=== PATIENT | male | born 1995 | race Caucasian/White ===

== ENCOUNTER 2022-12-11 18:28 | Emergency (ER) | payer OTHER ==
[~2022-12-11] VITALS: Ht 162.6 cm; Wt 60.0 kg
[2022-12-11] MEDS ORDERED: METHOCARBAMOL500 MG PO (19:34)
[2022-12-11] MEDS ORDERED: EC-NAPROXEN500 MG PO (19:34)
[2022-12-11 20:02] VITALS: BP 114/81
== END 2022-12-11 20:08 | disposition home or self-care (01) | DRG 552 ==
LOC: ED 18:28
DX: M54.2 Cervicalgia (principal); M54.50 Low back pain, unspecified; V49.50XA Passenger injured in collision with unspecified motor vehicles in traffic accident, initial encounter